=== PATIENT | male | born 1940 | race Caucasian/White ===

== ENCOUNTER 2017-01-01 14:54 | Inpatient (IN) | payer MEDICARE, BC ==
[2017-01-01 15:40] LABS: Hematocrit 40.1 % (42.0-52.0); Hemoglobin 13.5 gm/dL (13.5-18.0); Mean Cell Volume 85.1 fl (78-100); Mean Corpuscular Hemoglobin 28.7 pg (27-31); Mean Corpuscular Hgb Conc 33.7 g/dl (32-36); Mean Platelet Volume 11.3 fl (6.0-9.5); Neutrophil # 11.5 K/mm3 (1.3-6.0); Neutrophil % 83.4 % (42-75.0); Platelet Count 187 K/mm3 (150-450); Red Blood Count 4.71 M/mm3 (4.7-6.0); Red Cell Distribution Width 12.9 % (11.5-14.0); White Blood Count 13.8 K/mm3 (4.0-10.5)
[2017-01-01 15:55] LABS: Albumin * 3.7 gm/dl (3.4-5.0); Anion Gap 14.7 mmol/L (6.8-13.8); BUN/Creatinine Ratio 13.7 (9.0-21.6); Bilirubin, Total 0.5 mg/dL (0.0-1.1); Ca. Corrected For Albumin 8.7 mg/dL (8.4-10.2); Calcium * 8.8 mg/dL (7.9-10.9); Carbon Dioxide 25.5 mmol/L (24-32.6); Potassium 4.2 mmol/L (3.4-4.6); Total Protein 7.3 gm/dL (6.2-8.2)
[2017-01-01 16:01] LABS: Urine Bilirubin Negative (NEGATIVE); Urine Blood 50 /ul (NEGATIVE); Urine Ketone Negative (NEGATIVE); Urine Nitrite Negative (NEGATIVE); Urine Protein Negative (NEGATIVE); Urine Specific Gravity 1.025 SP.GR. (1.005-1.030); Urine Urobilinogen Normal (NORMAL)
--- NOTE | 2017-01-01 16:08 | ERNOTE ---
Abdominal HPI - Narrative Date of Service: 01/01/17 - General Chief Complaint: Abdominal Pain Time Seen by Provider: 01/01/17 15:09 Source: patient Exam Limitations: no limitations - Immun/Allergies/Home Medications Immunizatons: IMMUNIZATION HX Immunizations Up to Date Yes History of Influenza Vaccine Yes Hx Pneumococcal Vaccination No Allergies/Adverse Reactions: Allergies No Known Allergies Allergy (Verified 01/01/17 16:06) Home Medications: HOME MEDICATIONS Albuterol Sulfate [Proair Hfa] 2 puff IH Q4H PRN 12/04/15 [Last Taken Unknown] Blood Sugar Diagnostic [Accu-Chek Lisa] 1 each MC DAILY 12/04/15 [Last Taken Unknown] Enalapril Maleate [Vasotec] 10 mg PO DAILY 12/04/15 [Last Taken Unknown] Finasteride [Proscar] 5 mg PO Q2D 12/04/15 [Last Taken Unknown] Glipizide [Glucotrol] 20 mg PO BID 12/04/15 [Last Taken Unknown] Hydrochlorothiazide [Hydrodiuril] 25 mg PO DAILY 12/04/15 [Last Taken Unknown] Metoprolol Tartrate [Lopressor] 75 mg PO BID 12/04/15 [Last Taken Unknown] Simvastatin [Zocor] 20 mg PO HS 12/04/15 [Last Taken Unknown] Terazosin HCl 10 mg PO HS 12/04/15 [Last Taken Unknown] metFORMIN HCL [Glucophage] 850 mg PO BID 01/01/17 [Last Taken Unknown] - History of Present Illness Narrative: 76-year-old male presented to the emergency room today with left lower abdominal pain that is radiating to left flank. States that he had pain yesterday and it did disappear but it has come back today he rates the pain between a 5 and an 8. Timing: getting worse, intermittent Quality: severe, sharpness Activities at Onset: none Prior Abdominal Problems: Present: none Review of Systems - Review of Systems Constitutional: Present: no symptoms reported, See HPI. Absent: weakness, fatigue, weight loss, decreased activity level EYE: Present: no symptoms reported ENT: Present: no symptoms reported Respiratory: Present: no symptoms reported Cardiology: Present: no symptoms reported Gastrointestinal/Abdominal: Present: See HPI, abdominal pain, eating less. Absent: nausea, vomiting, diarrhea, constipation Genitourinary: Present: no symptoms reported Musculoskeletal: Present: no symptoms reported Skin: Present: no symptoms reported Neurological: Present: no symptoms reported Endocrine: Present: no symptoms reported Hematologic/Lymphatic: Present: no symptoms reported Psych: Present: no symptoms reported - Patient's Past Medical History Patient History - Medical: Arthritis, Diabetes Type 2 Patient History - Cardiac/Respiratory: Hypertension, Hyperlipidemia Patient History - Cancer: No Hx of Cancer Patient History - Surgical Procedures: Back Surgery, Cataracts, Colonoscopy, Total Hip Replacement, T & A, Other, Hernia Repair Patient History - Other: None - Family History Mother Family History - Medical: , History Unknown Family History - Cardiac/Respiratory: History Unknown Family History - Cancer: Leukemia Father Family History - Medical: , Diabetes Type 2 Family History - Cardiac/Respiratory: No pertinent hx Family History - Cancer: No pertinent family hx Sister Family History - Medical: Family History - Cancer: Pancreatic - Social History Living Situations: alone Abuse History: No History of abuse Psych History: No pertinent hx Smoking Status: Never smoker Have you smoked in the past 12 months: No Do you dip or chew tobacco: No Alcohol Use: rarely Drug Use: none - Immunizations Immunizations Up to Date: Yes Hx Pneumococcal Vaccination: No History of Influenza Vaccine: Yes Physical Exam - Physical Exam Narrative: A 6-year-old male presented to the emergency room patient has a protuberant stomach. he has left CVA tenderness and left lower quadrant discomfort upon palpation, right side abd palpation is negative for pain or discomfort right CVA tenderness is negative. States he had 2 bowel movements yesterday the first one was hard, the second one was soft., Patient states he tried to eat this morning was unable to does feel hungry. General Appearance: Present: wd/wn. Absent: moderate distress Eye Exam: Normal inspection: bilateral Ears, Nose, Throat: Present: normal ENT inspection Neck: Present: normal inspection Respiratory: Present: no respiratory distress Cardiovascular/Chest: Present: regular rate, rhythm Gastrointestinal/Abdominal: Present: normal bowel sounds, soft, other - large round belly. Absent: nontender, McBurney sign, Obturator sign, Lui sign Back Exam: Present: CVA tenderness (L). Absent: CVA tenderness (R) Extremity Exam: Present: normal inspection Neurological Exam: Present: alert, oriented, normal mood/affect Skin Exam: Present: normal color Lymphatic Exam: Present: no adenopathy ED Progress - Results and Orders Patient's Lab Results:: I have reviewed the patient's lab results. Results and Orders: elevated pancreatic enzymes - Vital Signs Patient's Vital Signs:: I have reviewed the patient's vital signs. Vital Signs: Vital Signs 01/01/17 15:09 Temperature 37.2 C Pulse Rate 79 Respiratory 18 Rate Blood Pressure 143/75 O2 Sat by Pulse 95 Oximetry - X-Ray X-Ray #1 X-Ray: abdomen Interpretation: Reviewed by me X-ray Comments: Findings: No free air. Nonobstructed nonspecific bowel gas pattern. No abnormal calcifications. There are extensive degenerative and postsurgical changes within the osseous structures. IMPRESSION: 1. No acute plain film pathology. Electronically signed by Leonel Daigle M.D.. - Progress/Reassessment Chief Complaint: Abdominal Pain Progress:: Unchanged Departure - Departure Clinical Impression: Pancreatitis Qualifiers: Chronicity: acute Pancreatitis type: unspecified pancreatitis type Acute pancreatitis complication: unspecified Qualified Code(s): K85.90 - Acute pancreatitis without necrosis or infection, unspecified Disposition: [facility] Condition: Stable Referrals: Maria Isabel López MD [Primary Care Provider] -
[2017-01-01 16:10] LABS: Urine Appearance Clear; Urine Bacteria 1+; Urine Color Yellow; Urine RBC 0-5 /hpf (0-5); Urine WBC 0-5 /hpf (0-5)
[2017-01-01] MEDS ORDERED: NORMAL SALINE 1,000 ML IV ONE (17:02)
[2017-01-01] MEDS ORDERED: HYDROmorphone HCL 1 MG/ML DISP.SYRIN IV ONE (17:07)
[2017-01-01] MEDS ORDERED: HYDROmorphone HCL 1 MG/ML DISP.SYRIN ONE (17:23)
[2017-01-01] MEDS ORDERED: ONDANSETRON HCL/PF 2 MG/ML VIAL IV ONE (17:32)
[2017-01-01] MEDS ORDERED: ONDANSETRON HCL/PF 2 MG/ML VIAL ONE (17:32)
[2017-01-01] MEDS ORDERED: ONDANSETRON HCL/PF 2 MG/ML VIAL IV PRN (20:20)
[2017-01-01] MEDS: HEPARIN SODIUM,PORCINE 5,000 UNITS/ML VIAL SC SCH (20:47)
[2017-01-01] MEDS: HYDROmorphone HCL 1 MG/ML DISP.SYRIN IV PRN (20:47)
[2017-01-01] MEDS: RINGERS SOLUTION,LACTATED 1,000 ML IV PRN (20:47)
[2017-01-01] MEDS ORDERED: ALBUTEROL SULFATE 200 PUFF INHALER IH PRN (21:00)
[2017-01-01] MEDS ORDERED: INSULIN GLARGINE,HUM.REC.ANLOG 100 UNITS/ML VIAL SC SCH (21:00)
[2017-01-01] MEDS ORDERED: FINASTERIDE 5 MG TABLET PO SCH (21:00)
[2017-01-01] MEDS ORDERED: METOPROLOL TARTRATE 50 MG TABLET PO SCH (21:00)
--- NOTE | 2017-01-01 21:05 | HP ---
Chief Complaint - Chief Complaint Date of Service: 01/01/17 Time of Service: 21:03 Chief Complaint: "Abdominal Pain". Source of HPI- Pt; reliable, ER provider report. History of Present Illness: Mr. Williamson is a 76-yr-old WM pt of Dr. Maria Isabel López with a PMH of: BPH, DM , HTN & HLD. Pt states that last night at about 10.00 pm, he developed lower abdominal pain, but the pain did not persist and was able to sleep well the rest of the night. He states that an hour after he woke up this am, he had the same pain on his lower abdomen. The pain was dull in nature but he chose to put up with it until in the afternoon hours, when it got more severe, and it started radiating to the LT flank area. He called his PCP' office about his symptoms and he was advised to go to the ED. He reports feeling nauseated once while at the ED. He denies being started on any new medications recently. However, he does admit to alcohol consumption of 3-4 cans of beer weekly. He reports that he had 3 cans of beer last night. He denies fever and chills. During evaluation at the ED, lab work -up showed he had Amylase/lipase levels of 255/2984 with a slightly elevated WBC of 13,800. The abdominal X-ray did not have any acute findings. - Patient's Past Medical History Patient History - Medical: Arthritis, Diabetes Type 2, Other - BPH. Patient History - Cardiac/Respiratory: Hypertension, Hyperlipidemia Patient History - Cancer: No Hx of Cancer Patient History - Surgical Procedures: Back Surgery, Cataracts, Colonoscopy, Total Hip Replacement, T & A, Other, Hernia Repair Patient History - Other: None - Family History Mother Family History - Medical: , History Unknown Family History - Cardiac/Respiratory: History Unknown Family History - Cancer: Leukemia Father Family History - Medical: , Diabetes Type 2 Family History - Cardiac/Respiratory: No pertinent hx Family History - Cancer: No pertinent family hx Sister Family History - Medical: Family History - Cancer: Pancreatic - Social History Living Situations: home Abuse History: No History of abuse Psych History: No pertinent hx Smoking Status: Never smoker Have you smoked in the past 12 months: No Do you dip or chew tobacco: No Patient requests Smoking Cessation Consult: No Initiate information on Smoking Cessation: No Alcohol Use: rarely Drug Use: none - Immunizations Immunizations Up to Date: Yes Hx Pneumococcal Vaccination: No History of Influenza Vaccine: Yes Review Of Systems (GEN) - Review of Systems Generalized/Overall Review: Absent: Weakness, Chills, Fever EENTM: Absent: Eye Pain, Nose Congestion, Throat Pain, Throat Swelling Respiratory: Absent: Cough, Shortness of Breath Cardiac: Absent: Chest Pain, Edema, Palpitations Abdominal: Present: Abdominal Pain, Constipation, Diarrhea. Absent: Nausea, Vomiting Genitourinary: Absent: Itching, Urgency, Frequency Musculoskeletal: Absent: Joint Pain, Back Pain Neurological: Absent: Headache, Anxiety, Depressed, Tremors Skin: Absent: Dryness, Lesions, Lumps Endocrine: Absent: Intolerance to Cold, Intolerance to Heat, Increased Thirst Immunizations: IMMUNIZATION HX Immunizations Up to Date Yes History of Influenza Vaccine Yes Hx Pneumococcal Vaccination No Allergies/Adverse Reactions: Allergies Allergy/AdvReac Type Severity Reaction Status Date / Time No Known Allergies Allergy Verified 01/01/17 17:49 Home Medications: HOME MEDICATIONS Albuterol Sulfate [Proair Hfa] 2 puff IH Q4H PRN 12/04/15 [Last Taken Unknown] Blood Sugar Diagnostic [Accu-Chek Lisa] 1 each MC DAILY 12/04/15 [Last Taken Unknown] Enalapril Maleate [Vasotec] 10 mg PO DAILY 12/04/15 [Last Taken Unknown] Finasteride [Proscar] 5 mg PO Q2D 12/04/15 [Last Taken 12/31/16 21:00] Hydrochlorothiazide [Hydrodiuril] 25 mg PO DAILY 12/04/15 [Last Taken Unknown] Metoprolol Tartrate [Lopressor] 75 mg PO BID 12/04/15 [Last Taken Unknown] Simvastatin [Zocor] 20 mg PO HS 12/04/15 [Last Taken Unknown] Terazosin HCl 10 mg PO HS 12/04/15 [Last Taken Unknown] Calcium Polycarbophil [Fibercon] 1,250 mg PO BID 01/01/17 [Last Taken Unknown] glyBURIDE [Micronase] 10 mg PO BID 01/01/17 [Last Taken Unknown] metFORMIN HCL [Glucophage] 850 mg PO BID 01/01/17 [Last Taken Unknown] Exam - Exam Vital Signs: Vital Signs - Last Taken Temp 36.7 C 01/01/17 18:02 Pulse 74 01/01/17 18:02 Resp 18 01/01/17 18:02 BP 147/78 01/01/17 18:02 Pulse Ox 94 01/01/17 18:02 Constitutional: Present: Alert, Oriented x3, Cooperative, No distress ENT Exam: Present: normal ENT inspection, hearing grossly normal, TMs normal Eye Exam: bilateral eye: normal inspection, PERRL Neck: Present: non-tender, full range of motion, supple Back Exam: Present: normal inspection, no CVA tenderness Breasts: Present: Exam deferred Respiratory: Present: lungs clear, no accessory muscle use, No wheezing Cardiovascular/Chest: Present: normal peripheral pulses, regular rate, rhythm, no chest tenderness, no edema, no murmur Abdomen: Present: nontender, no rebound tenderness, distended /Rectal: Present: Exam deferred Extremity: Present: normal range of motion, non-tender, normal inspection, no pedal edema, no calf tenderness Skin Exam: Present: warm/dry, no cyanosis Lymphatic: Present: no adenopathy Neurologic: Present: no motor/sensory deficits, alert, oriented x 3 Appearance: Present: appropriate appearance, appropriate insight Eye contact: Present: cooperative, good eye contact, normal speech Thoughts: Present: normal thought pattern, no apparent hallucination Diagnostic Studies: Laboratory Results WBC 13.8 K/mm3 (4.0-10.5) H 01/01/17 15:41 RBC 4.71 M/mm3 (4.7-6.0) 01/01/17 15:41 Hgb 13.5 gm/dL (13.5-18.0) 01/01/17 15:41 Hct 40.1 % (42.0-52.0) L 01/01/17 15:41 MCV 85.1 fl (78-100) 01/01/17 15:41 MCH 28.7 pg (27-31) 01/01/17 15:41 MCHC 33.7 g/dl (32-36) 01/01/17 15:41 RDW 12.9 % (11.5-14.0) 01/01/17 15:41 Plt Count 187 K/mm3 (150-450) 01/01/17 15:41 MPV 11.3 fl (6.0-9.5) H 01/01/17 15:41 Immature Gran % (Auto) 0.40 % (0.001-0.429) 01/01/17 15:41 Immature Gran # (Auto) 0.05 K/mm3 (0.000-0.0310) H 01/01/17 15:41 Neutrophils % 83.4 % (42-75.0) H 01/01/17 15:41 Lymphocytes % 7.1 % (20-51) L 01/01/17 15:41 Monocytes % 7.5 % (0.0-9) 01/01/17 15:41 Eosinophils % 1.2 % (0.0-3.0) 01/01/17 15:41 Basophils % 0.4 % (0.0-1.0) 01/01/17 15:41 Nucleated RBC % 0.0 k/mm3 (0-1) 01/01/17 15:41 Neutrophils # 11.5 K/mm3 (1.3-6.0) H 01/01/17 15:41 Lymphocytes # 1.0 k/mm3 (1.5-3.5) L 01/01/17 15:41 Monocytes # 1.0 k/mm3 (0.0-1.0) 01/01/17 15:41 Eosinophils # 0.2 k/mm3 (0.0-0.7) 01/01/17 15:41 Absolute Basophils 0.1 k/mm3 (0.0-0.1) 01/01/17 15:41 Sodium 139 mmol/L (132-142) 01/01/17 15:41 Plasma Sodium 141 mmol/L (130-142) 01/01/17 15:41 Potassium 4.2 mmol/L (3.4-4.6) 01/01/17 15:41 Chloride 103 mmol/L (97-106) 01/01/17 15:41 Carbon Dioxide 25.5 mmol/L (24-32.6) 01/01/17 15:41 Anion Gap 14.7 mmol/L (6.8-13.8) H 01/01/17 15:41 BUN 17 mg/dL (6-23) 01/01/17 15:41 Creatinine 1.24 mg/dL (0.4-1.4) 01/01/17 15:41 Est GFR (Non-Af Amer) 60 mL/min (60-130) 01/01/17 15:41 BUN/Creatinine Ratio 13.7 (9.0-21.6) 01/01/17 15:41 Random Glucose 235 mg/dL (70-110) H 01/01/17 15:41 Calcium 8.8 mg/dL (7.9-10.9) 01/01/17 15:41 Calcium Adj for Albumin 8.7 mg/dL (8.4-10.2) 01/01/17 15:41 Total Bilirubin 0.5 mg/dL (0.0-1.1) 01/01/17 15:41 AST 8 U/L (0-48) 01/01/17 15:41 ALT 22 U/L (19-67) 01/01/17 15:41 Alkaline Phosphatase 66 U/L (50-170) 01/01/17 15:41 Total Protein 7.3 gm/dL (6.2-8.2) 01/01/17 15:41 Albumin 3.7 gm/dl (3.4-5.0) 01/01/17 15:41 Triglycerides 155 mg/dL (30-200) 01/01/17 15:41 Amylase 255 U/L (25-115) H 01/01/17 15:41 Lipase 2984 U/L (73-393) H 01/01/17 15:41 Urine Color Yellow 01/01/17 15:47 Urine Appearance Clear 01/01/17 15:47 Urine pH 5.0 pH (5.0-7.0) 01/01/17 15:47 Ur Specific [place] 1.025 SP.GR. (1.005-1.030) 01/01/17 15:47 Urine Protein Negative mg/dL (NEGATIVE) 01/01/17 15:47 Urine Glucose (UA) Negative mg/dL (NEGATIVE) 01/01/17 15:47 Urine Ketones Negative mg/dL (NEGATIVE) 01/01/17 15:47 Urine Blood 50 /ul (NEGATIVE) H 01/01/17 15:47 Urine Nitrate Negative (NEGATIVE) 01/01/17 15:47 Urine Bilirubin Negative mg/dl (NEGATIVE) 01/01/17 15:47 Urine Urobilinogen Normal EU/dl (NORMAL) 01/01/17 15:47 Ur Leukocyte Esterase 25 /ul (NEGATIVE) H 01/01/17 15:47 Urine RBC 0-5 /hpf (0-5) 01/01/17 15:47 Urine WBC 0-5 /hpf (0-5) 01/01/17 15:47 Ur Epithelial Cells None seen /hpf (0-5) 01/01/17 15:47 Urine Bacteria 1+ (NONE) H 01/01/17 15:47 Urine Culture Comments Culture to follow 01/01/17 15:47 Assessment/Plan - Assessment/Plan (1) Acute pancreatitis Assessment: Mr. Williamson presented with Abd. Pain that was radiating to the LT flank area. He reported feeling nauseated once, but denied fevers and chills. He was determined to have Acute Pancreatitis due to the elevated Amylase/lipase levels of 255/2984. He has had no new recent medication changes involving steroids, opioids that could cause increase in pancreatic enzymes. His Tryglycerides was in the normal range. He has had no outside the country travel. At the time of physical examination, he is not ill -appearing and has mild abdominal tenderness without guarding. Social history reveals he has alcohol consumption and therefore I suspect this to be the trigger of the pancreatitis episode. Could consider obtaining an US of the Abdomen to see also if this is Non- Gallstone or Gallstone pancreatitis. Given his clinical presentation and a score of 2 on Tayla's Criteria, he appears to have a milder episode. Will treat with aggressive IVF hydration with Isotonic Crystaloid solution such as LR and 250-500ml/hr & it is strongly recommended for 12-24 hrs to prevent necrotizing pancreatitis. Will start at 250ml/hr. Will rest Gut by keeping him NPO and then advance diet as tolerated, utilize prn Analgesiscs & Antiemetics. Trend Amylase/lipase levels in am labs. Estimated LOS is 3-5 days. Problem: Acute (2) Diabetes mellitus Assessment: Will hold his Oral Glycemic medications and start Low dose SSI and Long acting insulin for better control of blood sugars during hospitalization and during infection process. Perfom Accu- checks q 6 hrs. Problem: Chronic (3) HTN (hypertension) Assessment: Stable- Continue HCTZ, Enapril, Metoprolol. Problem: Chronic Qualifiers: Hypertension type: essential hypertension Qualified Code(s): I10 - Essential (primary) hypertension (4) BPH (benign prostatic hyperplasia) Assessment: Stable- On Proscar & Hytrin. Problem: Chronic
[2017-01-01] MEDS ORDERED: METOPROLOL TARTRATE 25 MG TABLET ONE (21:39)
[2017-01-01] MEDS: CALCIUM POLYCARBOPHIL 625 MG TABLET PO SCH (21:42)
[2017-01-01] MEDS: TERAZOSIN HCL 5 MG CAPSULE PO SCH (21:45)
[2017-01-01] MEDS: SIMVASTATIN 20 MG TABLET PO SCH (21:45)
[2017-01-02] MEDS: INSULIN LISPRO 100 UNITS/ML VIAL SC SCH ×5 (00:48→20:09)
[2017-01-02] MEDS: RINGERS SOLUTION,LACTATED 1,000 ML IV PRN ×6 (00:49→23:48)
[2017-01-02] MEDS: HYDROmorphone HCL 1 MG/ML DISP.SYRIN IV PRN ×4 (04:11→23:51)
[2017-01-02 06:03] LABS: Hematocrit 34.1 % (42.0-52.0); Hemoglobin 11.5 gm/dL (13.5-18.0); Mean Corpuscular Hemoglobin 29.3 pg (27-31); Mean Corpuscular Hgb Conc 33.7 g/dl (32-36); Mean Platelet Volume 11.9 fl (6.0-9.5); Neutrophil # 6.6 K/mm3 (1.3-6.0); Neutrophil % 74.2 % (42-75.0); Platelet Count 159 K/mm3 (150-450); Red Blood Count 3.92 M/mm3 (4.7-6.0); White Blood Count 8.9 K/mm3 (4.0-10.5)
[2017-01-02 06:21] LABS: Albumin * 2.9 gm/dl (3.4-5.0); Anion Gap 10.9 mmol/L (6.8-13.8); BUN/Creatinine Ratio 17.7 (9.0-21.6); Bilirubin, Total 0.6 mg/dL (0.0-1.1); Ca. Corrected For Albumin 8.9 mg/dL (8.4-10.2); Calcium * 8.3 mg/dL (7.9-10.9); Carbon Dioxide 27.8 mmol/L (24-32.6); Potassium 3.7 mmol/L (3.4-4.6); Total Protein 6.2 gm/dL (6.2-8.2)
--- NOTE | 2017-01-02 06:44 | PN ---
Subjective - Date and Time Seen Date: 01/02/17 - n Time: 06:40 Subjective Narrative: Mr. Williamson is alert and in no distress this am. Denies nausea. Has mild abp pain but the pain medication helps. No other acute events overnight. Objective - Vitals Vitals: Last Vital Signs Temp 36.5 C 01/02/17 04:29 Pulse 70 01/02/17 04:29 Resp 20 01/02/17 04:29 BP 129/65 01/02/17 04:29 Pulse Ox 92 01/02/17 04:29 - Abnormal Lab Findings Abnormal Lab Findings: Abnormal Lab Results 01/02/17 01/02/17 Range/Units 05:11 05:11 RBC 3.92 L (4.7-6.0) M/mm3 Hgb 11.5 L (13.5-18.0) gm/dL Hct 34.1 L (42.0-52.0) % MPV 11.9 H (6.0-9.5) fl Lymphocytes % 15.2 L (20-51) % Neutrophils # 6.6 H (1.3-6.0) K/mm3 Lymphocytes # 1.4 L (1.5-3.5) k/mm3 Random Glucose 141 H D (70-110) mg/dL ALT 15 L (19-67) U/L Albumin 2.9 L (3.4-5.0) gm/dl - Exam Constitutional: Present: Alert, Oriented x3, Cooperative, No distress ENT Exam: Present: normal ENT inspection, hearing grossly normal. Absent: nasal congestion, nasal drainage Neck: Present: full range of motion, supple, normal inspection Breasts: Present: Exam deferred Respiratory: Present: lungs clear, no accessory muscle use, No wheezing Cardiovascular/Chest: Present: normal peripheral pulses, regular rate, rhythm, no chest tenderness, no edema, no murmur Abdomen: Present: nontender, distended /Rectal: Present: Exam deferred Extremity: Present: normal range of motion, non-tender, normal inspection, no calf tenderness Skin Exam: Present: warm/dry, no cyanosis Lymphatic: Present: no adenopathy Neurologic: Present: no motor/sensory deficits, alert, oriented x 3. Absent: dizzy/light-headedness Appearance: Present: appropriate appearance, appropriate insight Eye contact: Present: cooperative, good eye contact, normal speech Thoughts: Present: normal thought pattern, no apparent hallucination Assessment/Plan - Problems/Diagnosis (1) Acute pancreatitis Problem: Acute Narrative: Mr. Williamson presented with Abd. Pain that was radiating to the LT flank area. He reported feeling nauseated once, but denied fevers and chills. He was determined to have Acute Pancreatitis due to the elevated Amylase/lipase levels of 255/2984. He has had no new recent medication changes involving steroids, opioids that could cause increase in pancreatic enzymes. His Tryglycerides was in the normal range. He has had no outside the country travel. At the time of physical examination, he is not ill -appearing and has mild abdominal tenderness without guarding. Social history reveals he has alcohol consumption and therefore I suspect this to be the trigger of the pancreatitis episode. Could consider obtaining an US of the Abdomen to see also if this is Non- Gallstone or Gallstone pancreatitis. Given his clinical presentation and a score of 2 on Tayla's Criteria, he appears to have a milder episode. Will treat with aggressive IVF hydration with Isotonic Crystaloid solution such as LR and 250-500ml/hr & it is strongly recommended for 12-24 hrs to prevent necrotizing pancreatitis. Will start at 250ml/hr. Will rest Gut by keeping him NPO and then advance diet as tolerated, utilize prn Analgesiscs & Antiemetics. Trend Amylase/lipase levels in am labs. Estimated LOS is 3-5 days. (2) Diabetes mellitus Problem: Chronic Narrative: Will hold his Oral Glycemic medications and start Low dose SSI and Long acting insulin for better control of blood sugars during hospitalization and during infection process. Perfom Accu- checks q 6 hrs. 01/02/17- Will stop the Lantus. Change Accu-checks to q 4 hrs, May add D5 to IVF if blood sugars start dropping to < 80. (3) HTN (hypertension) Problem: Chronic Qualifiers: Hypertension type: essential hypertension Qualified Code(s): I10 - Essential (primary) hypertension Narrative: Stable- Continue HCTZ, Enapril, Metoprolol. (4) BPH (benign prostatic hyperplasia) Problem: Chronic Narrative: Stable- On Proscar & Hytrin.
[2017-01-02] MEDS ORDERED: ALBUTEROL SULFATE 2.5 MG/0.5 ML VIAL.NEB IH PRN (07:02)
[2017-01-02 07:26] LABS: Amylase * 349 U/L (25-115)
[2017-01-02 08:01] LABS: Lipase 3590 U/L (73-393)
[2017-01-02] MEDS: HEPARIN SODIUM,PORCINE 5,000 UNITS/ML VIAL SC SCH ×2 (09:12→20:08)
[2017-01-02] MEDS: HYDROCHLOROTHIAZIDE 25 MG TABLET PO SCH (09:54)
[2017-01-02] MEDS: METOPROLOL TARTRATE 25 MG TABLET PO SCH ×2 (09:54→20:08)
[2017-01-02] MEDS: CALCIUM POLYCARBOPHIL 625 MG TABLET PO SCH ×2 (09:54→20:08)
[2017-01-02] MEDS: ENALAPRIL MALEATE 5 MG TABLET PO SCH (09:55)
[2017-01-02] MEDS ORDERED: DIATRIZOATE MEGLU/DIATRIZO SOD 30 ML BTL PO ONE (12:33)
[2017-01-02] MEDS ORDERED: PANTOPRAZOLE SODIUM 40 MG in NORMAL SALINE 100 ML IV SCH (16:30)
--- NOTE | 2017-01-02 17:09 | CONS ---
HPI - General Narrative: 76-year-old male with known BPH developed some atypical abdominal symptomatology initially lower abdominal eventually epigastric area. Laboratory evaluation with normal creatinine, normal white count however amylase and lipase significantly abnormal. Patient has been admitted recent CT was obtained and revealed the presence of a very large left proximal ureteral calculus with impaired drainage on that side based on contrast excretion delay. Denies fevers chills, he is not a heavy drinker, currently not insignificant pain. Urinalysis with some mild abnormalities. Patient was given a dose of ceftriaxone. He is diabetic. 01/09 CT urogram: Large obstructing left proximal ureteral calculus with delayed excretion, smaller stone in the kidney. Artifact down by the bladder. Some nonspecific inflammation. Stone was not visible on KUB Location: Left kidney Duration: Days Severity/Stage: Currently mild was more moderate in severity Associated Sx's: Some nausea, no fevers chills Modifying factors: Got better on its own Quality: More of a dull ache Past medical history: BPH, diabetes, hypertension, hyperlipidemia. Past surgical history: No prior stone surgery, hip replacements, no prior urologic surgery Social history: Patient denies drinking heavily only occasional beer or not that many. Family history: Noncontributory Review of systems: General: No fevers, some epigastric discomfort favoring the left side, some nausea Lungs: No current shortness of breath Heart: [No chest pain] GI: Abdominal discomfort as above Musculoskeletal: Some aches and pains at baseline, nothing new, has bilateral hips : Patient with history of BPH I started him on BPH medication no urinary trouble currently. No gross hematuria. 14 point review of systems otherwise negative, important positives noted - History of Present Illness Allergies/Adverse Reactions: Allergies No Known Allergies Allergy (Verified 01/01/17 17:49) Home Medications: Home Medications Medication Instructions Recorded Last Taken Albuterol Sulfate [Proair Hfa] 2 puff IH Q4H PRN 12/04/15 Unknown Blood Sugar Diagnostic [Accu-Chek 1 each MC DAILY 12/04/15 Unknown Lisa] Enalapril Maleate [Vasotec] 10 mg PO DAILY 12/04/15 Unknown Finasteride [Proscar] 5 mg PO Q2D 12/04/15 12/31/16 21:00 Hydrochlorothiazide [Hydrodiuril] 25 mg PO DAILY 02/09/16 Unknown Metoprolol Tartrate [Lopressor] 75 mg PO BID 12/04/15 Unknown Simvastatin [Zocor] 20 mg PO HS 12/04/15 Unknown Terazosin HCl 10 mg PO HS 12/04/15 Unknown Calcium Polycarbophil [Fibercon] 1,250 mg PO BID 01/01/17 Unknown glyBURIDE [Micronase] 10 mg PO BID 01/01/17 Unknown metFORMIN HCL [Glucophage] 850 mg PO BID 01/01/17 Unknown - Patient's Past Medical History Patient History - Medical: Arthritis, Diabetes Type 2, Other - BPH. Patient History - Cardiac/Respiratory: Hypertension, Hyperlipidemia Patient History - Cancer: No Hx of Cancer Patient History - Surgical Procedures: Back Surgery, Cataracts, Colonoscopy, Total Hip Replacement, T & A, Other, Hernia Repair Patient History - Other: None - Family History Mother Family History - Medical: , History Unknown Family History - Cardiac/Respiratory: History Unknown Family History - Cancer: Leukemia Father Family History - Medical: , Diabetes Type 2 Family History - Cardiac/Respiratory: No pertinent hx Family History - Cancer: No pertinent family hx Sister Family History - Medical: Family History - Cancer: Pancreatic - Social History Living Situations: home Abuse History: No History of abuse Psych History: No pertinent hx Smoking Status: Never smoker Have you smoked in the past 12 months: No Do you dip or chew tobacco: No Patient requests Smoking Cessation Consult: No Initiate information on Smoking Cessation: No Alcohol Use: rarely Drug Use: none - Immunizations Immunizations Up to Date: Yes Hx Pneumococcal Vaccination: No History of Influenza Vaccine: Yes Procedures AFTER-CATAR DISCISSION (08/26/11) CATARAC PHACOEMULS/ASPIR (05/08/09) COLONOSCOPY (03/22/08) INJECT STEROID (04/14/06) INJECT/INFUSE NEC (04/14/06) INJECTION INTO JOINT (04/14/06) INSERT LENS AT CATAR EXT (05/08/09) INSPECTION OF LOWER INTESTINAL TRACT, ENDO (12/10/15) OTHER & OPEN REPAIR UMBILICAL HERNIA W GRAFT OR PROSTHESIS (07/24/11) RADICAL EXCIS SKIN LES (07/24/11) TOTAL HIP REPLACEMENT (11/11/06) X-RAY NEC AND NOS (04/14/06) Medications - Medications Current Medications: Current Medications Calcium Polycarbophil (Fibercon) 1,250 mg PO BID MINDA Stop: 01/31/17 21:01 Last Admin: 01/02/17 09:54 Dose: 1,250 mg Enalapril Maleate (Vasotec) 10 mg PO DAILY MINDA Stop: 02/01/17 09:01 Last Admin: 01/02/17 09:55 Dose: 10 mg Finasteride (Proscar) 5 mg PO Q2D MINDA Stop: 01/31/17 21:01 Last Admin: 01/01/17 21:42 Dose: Not Given Heparin Sodium (Porcine) (Heparin Sodium) 5,000 units SC Q12H [facility] Stop: 01/31/17 20:31 Last Admin: 01/02/17 09:12 Dose: 5,000 units Hydrochlorothiazide (Hydrodiuril) 25 mg PO DAILY [facility] Stop: 02/01/17 09:01 Last Admin: 01/02/17 09:54 Dose: 25 mg Hydromorphone HCl (Dilaudid) 0.5 mg IV Q1H PRN PRN Reason: Moderate Pain Stop: 01/31/17 20:22 Last Admin: 01/02/17 07:41 Dose: 0.5 mg Lactated Ringer's (Lactated Ringers) 1,000 mls @ 100 mls/hr IV .Q10H PRN PRN Reason: HYDRATION Last Admin: 01/02/17 13:15 Dose: 250 mls/hr Ceftriaxone Sodium 1,000 mg/ (Dextrose/Water) 100 mls @ 200 mls/hr IV Q24H MINDA PRN Reason: Protocol Stop: 02/01/17 15:46 Last Admin: 01/02/17 16:44 Dose: 200 mls/hr Metoprolol Tartrate (Lopressor) 75 mg PO BID [facility] Stop: 02/01/17 09:01 Last Admin: 01/02/17 09:54 Dose: 75 mg Simvastatin (Zocor) 20 mg PO HS [facility] Stop: 01/31/17 21:01 Last Admin: 01/01/17 21:45 Dose: 20 mg Terazosin HCl (Hytrin) 10 mg PO HS [facility] Stop: 01/31/17 21:31 Last Admin: 01/01/17 21:45 Dose: 10 mg Physical Examination - Exam Narrative: General: Definitely does not appear to be in severe renal colic, no acute distress, nontoxic Psych: Alert and oriented HEENT: EOM grossly intact Lungs: Respirations unlabored, clear Abdomen: Abdomen tense at baseline, no rebound, no peritoneal signs Neuro: sensation intact Extremities: Moves all 4 without difficulty Heart: Regular Skin: No obvious rashes Back: No CVA tenderness Vital Signs: Vital Signs - Last Taken Temp 98.1 F 01/02/17 14:57 Pulse 67 01/02/17 14:57 Resp 18 01/02/17 14:57 BP 125/70 01/02/17 14:57 Pulse Ox 94 01/02/17 14:57 O2 Oxygen Delivery Method Room Air - Results and Findings: Narrative: #1 obstructing large left ureteral calculus in a diabetic: Size of stone makes it extraordinarily unlikely to pass, his symptomatology is atypical and I' m not quite sure what to make of the amylase and lipase. I have had one other patient without any pancreatic issues with obstructing stone do this before but it is pretty rare. Discussed options including trial of passage which is unlikely to be successful in this situation. Stone not visible on KUB so ESWL not a great option. My recommendation is to proceed with cystoscopy and retrograde pyelograms followed by attempted left ureteroscopy with laser/basket versus simply stenting depending on intraoperative findings. Risk of surgery include bleeding/infection/injury to ureter including stricture/ avulsion/perforation. Typical stent symptoms discussed. 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 In addition if there is evidence of infection on the backside of the stone I am unlikely to proceed with ureteroscopy and would simply manipulate stone and stent as there is a higher infection/sepsis rate in that situation especially in diabetics. Patient has been nothing by mouth, he did receive a dose of ceftriaxone. He is interested in proceeding with surgery we'll proceed today. Lab/Microbiology results last 24 hrs: Abnormal/Pending Laboratory Last 24 HRS 01/02/17 01/02/17 01/02/17 05:11 05:11 05:11 RBC Hgb Hct MPV Lymphocytes % Neutrophils # Lymphocytes # Random Glucose 141 H D ALT 15 L Albumin 2.9 L LDL Cholesterol 39 L HDL Cholesterol 33 L Cholesterol/HDL Ratio 3.0 L Amylase 349 H Lipase 3590 H 01/02/17 05:11 RBC 3.92 L Hgb 11.5 L Hct 34.1 L MPV 11.9 H Lymphocytes % 15.2 L Neutrophils # 6.6 H Lymphocytes # 1.4 L Random Glucose ALT Albumin LDL Cholesterol HDL Cholesterol Cholesterol/HDL Ratio Amylase Lipase
[2017-01-02] MEDS ORDERED: RINGERS SOLUTION,LACTATED 1,000 ML IV ONE (17:36)
--- NOTE | 2017-01-02 17:48 | OR ---
Operative Report - Dictated Report Narrative: Location: Main OR Anesthesia: General Surgeon: Dr. Valdez Preoperative diagnosis: Left proximal ureteral stone(s) Postoperative diagnosis: Same with additional small bladder stones, BPH with obstruction with significant intravesical prostate and difficult ureteral anatomy secondary to bladder neck/prostate anatomy Procedure: #1 Cystoscopy with removal of foreign body (small stones) and left retrograde pyelogram #2 left stone manipulation without removal and placement of a 7 by multi length double j stent Indications: 76-year-old male known BPH developed atypical abdominal discomfort with elevated pancreatic enzymes but also discovered to have a very large obstructing left ureteral calculus. Discussed options and elected to proceed with the above-mentioned procedure Description: Consent obtained. Patient brought to the operating room where general endotracheal anesthesia was induced. Placed in the dorsal lithotomy position. Prepped and draped. Timeout taken. Rigid cystoscope introduced navigated towards the bladder with 30 lens. Does have an enlarged prostate with bilobar hypertrophy and a significant intravesical component with the ureters tucked in behind that prostate/bladder neck lip. No way to reach those ureters with 30 lens and straight wire based on anatomy. Nicholas cystoscopy with 30 and 70 lenses revealed a paucity of heavy obstructive change. There are small stones located behind the bladder neck/prostate lip. Bladder was rinsed and stent grasping forceps was used to extract the smaller stones which did fit through the sheath. I had to use the 70 lens, 5 [place] catheter and angled Glidewire to intubate left ureteric orifice with wire at which point I was able to advance the 5 [place] catheter into the ureter. Prior to injection of contrast the contrast from the CT urogram was visible with a transition point in the approximate location of the known stone seen on CT. Left retrogrades obtained and interpreted by Dr. Acuña. Left: 5-7 mL of Isovue was injected after the angled Glidewire was removed and the proximal ureter was seen to be hydronephrotic with a shadowing filling defect consistent with the known location of stone. Ureter distal to that looked fairly normal. I used the angled Glidewire to navigate past the stone and used the 5 [place] catheter to bump the stone into the renal pelvis. Prompt drainage of hydronephrotic urine without evidence of infection. Given the difficulty of the bladder neck anatomy and no prior stenting and given the size of stone I felt that was in the patient's best interest to simply stent, allow for passive dilation and proceed with definitive management at a later setting. The other concerning finding was the elevated pancreatic enzymes. As such I slipped and a Super Stiff wire. Remove the 5 [place] catheter. Over that wire a 7 by multi length stent was deployed. Specimen: None EBL: 0 ml Condition: tolerated procedure Important findings: Abnormal bladder neck anatomy from high riding intravesical prostate. Bladder stones post-successful removal. Successful left stone manipulation and stenting with very large renal pelvis stone. Not visible on x-ray which would make it possibly consistent with uric acid stone. Follow-up: We'll plan on definitive surgery this Thursday. Would only do so once we confirm he definitely does not have acute pancreatitis. Again I have seen elevated amylase/lipase one time with stone before no pancreatic issues but he is diabetic. If Dr. Ray/primary service not comfortable with surgery this Thursday and wants to wait a little bit longer just let me know.
[2017-01-02] MEDS: TERAZOSIN HCL 5 MG CAPSULE PO SCH (20:08)
[2017-01-02] MEDS: SIMVASTATIN 20 MG TABLET PO SCH (20:09)
[2017-01-03 06:16] LABS: Hematocrit 33.7 % (42.0-52.0); Hemoglobin 11.1 gm/dL (13.5-18.0); Mean Cell Volume 87.5 fl (78-100); Mean Corpuscular Hemoglobin 28.8 pg (27-31); Mean Corpuscular Hgb Conc 32.9 g/dl (32-36); Mean Platelet Volume 12.2 fl (6.0-9.5); Neutrophil # 6.4 K/mm3 (1.3-6.0); Neutrophil % 78.1 % (42-75.0); Platelet Count 148 K/mm3 (150-450); Red Blood Count 3.85 M/mm3 (4.7-6.0); Red Cell Distribution Width 13.2 % (11.5-14.0); White Blood Count 8.2 K/mm3 (4.0-10.5)
[2017-01-03] MEDS: INSULIN LISPRO 100 UNITS/ML VIAL SC SCH (06:22)
[2017-01-03 06:30] LABS: Albumin * 2.9 gm/dl (3.4-5.0); Anion Gap 10.3 mmol/L (6.8-13.8); Bilirubin, Total 0.5 mg/dL (0.0-1.1); CRP 3.5 mg/dL (0.0-0.9); Ca. Corrected For Albumin 8.9 mg/dL (8.4-10.2); Calcium * 8.3 mg/dL (7.9-10.9); Carbon Dioxide 28.6 mmol/L (24-32.6); Potassium 3.9 mmol/L (3.4-4.6); Total Protein 6.2 gm/dL (6.2-8.2)
--- NOTE | 2017-01-03 08:52 | DS ---
(1) Elevated pancreatic enzyme Problem: Acute (2) Hydronephrosis of left kidney Problem: Acute (3) Calculus of left kidney Problem: Acute (4) UTI (urinary tract infection) Problem: Suspected Qualifiers: Urinary tract infection type: acute cystitis Hematuria presence: with hematuria Qualified Code(s): N30.01 - Acute cystitis with hematuria (5) BPH (benign prostatic hyperplasia) Problem: Chronic Qualifiers: Prostatic enlargement morphology: unspecified morphology Lower urinary tract symptom presence: presence of symptoms unspecified Qualified Code(s): N40.0 - Benign prostatic hyperplasia without lower urinary tract symptoms (6) Diabetes mellitus Problem: Chronic Qualifiers: Diabetes mellitus type: type 2 Diabetes mellitus complication status: with unspecified complications Diabetes mellitus group home insulin use: without group home use Qualified Code(s): E11.8 - Type 2 diabetes mellitus with unspecified complications (7) HTN (hypertension) Problem: Chronic Qualifiers: Hypertension type: essential hypertension Qualified Code(s): I10 - Essential (primary) hypertension Description of Stay: Kirk Williamson is a 76 year old male who presented to the ER on 01/01/17 with c/o lower abdominal pain for 24 hours. patient was diagnosed with acute pancreatitis with amylase/lipase levels of 255/2984. pt was started on iv fluids and made NPO. the next day, the patient had an abdominal ultrasound done which showed left hydronephrosis. CT of the abdomen was immediately ordered and showed a 1.7 cm left kidney stone with severe hydronephrosis. immediately upon receiving these results, Dr. Acuña with urology was consulted. This afternoon the patient was taken to surgery for a cystoscopy with removal of foreign body (small stones) and left stone manipulation and placement of stent. Post op, patient recovered well. The next day his amylase/ lipase returned to normal and he was able to be discharged in stable condition. patient will follow up with Dr. Acuña on thursday in preop for another surgery in an attempt to go back and remove the stone. Patient was educated prior to discharge not to start his metformin for 48 hours due to the contrast used during the surgery. Procedures Performed: see notes below List Procedures: 01/02/[address] Acuña 1. cystoscopy with removal of foreign body (small stones) and left retrograde pyelogram 2. left stone manipulation without removal and placement of a 7 by multi length double j stent. Discharge Disposition: Home self care Disposition: Home self-care Condition: Good Discharge Activity: Activity as tolerated Discharge Diet: Consistent carbs Referrals: Maria Isabel López MD [Primary Care Provider] - Consultation Done:: Urology Problem Oriented Discharge Instructions to Patient/Family: Hydronephrosis, Cystoscopy, Care After Additional Patient Instructions (free text): Restart Metformin in 48 Hours take percocet with food. Surgery should call on thursday or thursday with preop instructions for surgery on Thursday. Prescriptions (Any new or edited meds): Ciprofloxacin HCl [Cipro] 500 mg PO BID #20 tab Potassium Citrate [Urocit-K] 15 meq PO BID #12 tablet.er oxyCODONE HCL/ACETAMINOPHEN [Percocet 5-325 mg Tablet] 1 each PO Q6H #30 tablet Complete Home Medications List: Complete Home Medication List: Albuterol Sulfate [Proair Hfa] 2 puff IH Q4H PRN 12/04/15 Blood Sugar Diagnostic [Accu-Chek Lisa] 1 each MC DAILY 12/04/15 Enalapril Maleate [Vasotec] 10 mg PO DAILY 12/04/15 Finasteride [Proscar] 5 mg PO Q2D 12/04/15 Hydrochlorothiazide [Hydrodiuril] 25 mg PO DAILY 12/04/15 Metoprolol Tartrate [Lopressor] 75 mg PO BID 12/04/15 Simvastatin [Zocor] 20 mg PO HS 12/04/15 Terazosin HCl 10 mg PO HS 12/04/15 Calcium Polycarbophil [Fibercon] 1,250 mg PO BID 01/01/17 glyBURIDE [Micronase] 10 mg PO BID 01/01/17 Ciprofloxacin HCl [Cipro] 500 mg PO BID #20 tab 01/03/17 Potassium Citrate [Urocit-K] 15 meq PO BID #12 tablet.er 01/03/17 oxyCODONE HCL/ACETAMINOPHEN [Percocet 5-325 mg Tablet] 1 each PO Q6H #30 tablet 01/03/17 Pioglitazone HCl [Actos] 15 mg PO DAILY 01/07/17
[2017-01-03] MEDS: HEPARIN SODIUM,PORCINE 5,000 UNITS/ML VIAL SC SCH (08:59)
[2017-01-03] MEDS: ENALAPRIL MALEATE 5 MG TABLET PO SCH (09:00)
[2017-01-03] MEDS: CALCIUM POLYCARBOPHIL 625 MG TABLET PO SCH (09:00)
[2017-01-03] MEDS: HYDROCHLOROTHIAZIDE 25 MG TABLET PO SCH (09:01)
[2017-01-03] MEDS: METOPROLOL TARTRATE 25 MG TABLET PO SCH (09:01)
[2017-01-03 09:15] VITALS: BP 136/58
== END 2017-01-03 11:00 | disposition home or self-care (01) | DRG 694 ==
LOC: ER 14:54 → MS 17:17
PROVIDERS: ADMIT Internal Medicine; ATTEND Internal Medicine
PROC: BT1FZZZ Fluoroscopy of Left Kidney, Ureter and Bladder (ICD-10-PCS; 2017-01-02)
PROC: 0T7 Urinary System, Dilation (ICD-10-PCS; 2017-01-02)
PROC: 0TCC8ZZ Extirpation of Matter from Bladder Neck, Via Natural or Artificial Opening Endoscopic (ICD-10-PCS; principal; 2017-01-02 16:45)
DX: N13.1 Hydronephrosis with ureteral stricture, not elsewhere classified (principal); N20.2 Calculus of kidney with calculus of ureter; N13.8 Other obstructive and reflux uropathy; N40.1 Benign prostatic hyperplasia with lower urinary tract symptoms; Q64.79 Other congenital malformations of bladder and urethra; E11.9 Type 2 diabetes mellitus without complications; I10 Essential (primary) hypertension; E78.5 Hyperlipidemia, unspecified

== ENCOUNTER 2017-01-07 11:34 | Day surgery (SDC) | payer MEDICARE, BC ==
[~2017-01-07 11:34] MED LIST: KETOROLAC TROMETHAMINE 15 MG/ML VIAL IV PRN; MORPHINE SULFATE 2 MG/ML DISP.SYRIN IV PRN; NORMAL SALINE 1,000 ML IV PRN; OXYBUTYNIN CHLORIDE 5 MG TABLET PO PRN; oxyCODONE HCL/ACETAMINOPHEN 1 TAB TABLET PO PRN
--- NOTE | 2017-01-07 14:24 | OR ---
Operative Report - Dictated Report Narrative: Location: Main OR Anesthesia: General Surgeon: Dr. Valdez Preoperative diagnosis: Left Proximal ureteral stone(s) Postoperative diagnosis: 2 separate large left renal stones Procedure: #1 Cystoscopy with removal of previously placed left 7 Amharic double-J stent #2 left flexible ureteroscopy with holmium laser lithotripsy and placement of a new 5 by multi length double j stent Indications: 76-year-old male severe left-sided flank pain with elevated pancreatic enzymes and a CT confirming very large obstructing left ureteral calculus. Underwent successful manipulation with stenting presented today for definitive management. Also made the presumptive diagnosis of uric acid nephrolithiasis based on appearance of stone on x-ray i.e. it was not visible. Description: Consent obtained. Patient brought to the operating room where general endotracheal anesthesia was induced. Placed in the dorsal lithotomy position. Prepped and draped. Timeout taken. Rigid cystoscope introduced into the bladder with ease and quick cystoscopy revealed no tumors, stones or suspicious lesions . Left stent identified grasped pulled per urethra. Super Stiff wire advanced. Ureteral access sheath was then introduced. Flexible ureteroscope was then used and advanced into the ureter. Stone was encountered in the renal pelvis, there were 2 separate stone both fairly large. 270 micron laser fiber was used. Energy of 0.4-0.6 joules and a rate of 40 hertz was used to fragment the stone into submillimeter pieces. Fragmentation was good however the amount of debris was significant and visualization became impaired as snowstorm developed. I was able to identify some of the calyces which had some larger fragments that which up off the bigger stone I hovered in fragmented further and these calyces. It became impossible to see safely any further within the kidney based on the volume of stone treated and so at that point I felt that was in the patient's best interest to stop, place a smaller stent, allow for further passage fragments/ debris especially the dust particles and also alkalize a bit further to get some dissolution of the larger fragments. As such scope and access sheath were withdrawn down the ureter leaving safety wire in place 5 by multi length double-J stent was then placed over the safety wire under fluoroscopic guidance with good curls in the kidney and bladder. Specimen was obtained and sent for analysis. Specimen: Stone dust was obtained and sent for analysis EBL: 5 ml Condition: tolerated procedure Important findings: I successfully treated both stones however fragments of some significant size did form during the fragmentation process and have collected in calyces and renal pelvis in the amount of dust debris as made visualization difficult. Follow-up: Next Thursday for likely second look left ureteroscopy with laser lithotripsy/basket extraction versus simple stent removal. I am leaning towards the former based on the above-mentioned factors but we will use patient' s input to make final decision
[2017-01-07 16:13] VITALS: BP 131/70
== END 2017-01-07 11:35 | disposition home or self-care (01) ==
LOC: AMB 11:34
PROVIDERS: ATTEND Urology
PROC: 0T778DZ Dilation of Left Ureter with Intraluminal Device, Via Natural or Artificial Opening Endoscopic (ICD-10-PCS; 2017-01-07)
PROC: 0TF48ZZ Fragmentation in Left Kidney Pelvis, Via Natural or Artificial Opening Endoscopic (ICD-10-PCS; principal; 2017-01-07 13:35)
DX: N20.0 Calculus of kidney (principal); E11.9 Type 2 diabetes mellitus without complications; I10 Essential (primary) hypertension; E78.5 Hyperlipidemia, unspecified; N40.0 Benign prostatic hyperplasia without lower urinary tract symptoms; Z68.34 Body mass index [BMI] 34.0-34.9, adult

== ENCOUNTER 2017-01-14 11:27 | Day surgery (SDC) | payer MEDICARE, BC ==
[~2017-01-14 11:27] MED LIST changes: -KETOROLAC TROMETHAMINE 15 MG/ML VIAL IV PRN; -MORPHINE SULFATE 2 MG/ML DISP.SYRIN IV PRN; -OXYBUTYNIN CHLORIDE 5 MG TABLET PO PRN; -oxyCODONE HCL/ACETAMINOPHEN 1 TAB TABLET PO PRN
--- NOTE | 2017-01-14 14:12 | OR ---
Operative Report - Dictated Report Narrative: Location: Main OR Anesthesia: General Surgeon: Dr. Valdez Preoperative diagnosis: Left renal stone(s) Postoperative diagnosis: Same Procedure: #1 Cystoscopy with removal of previously placed left double-J stent, left retrograde pyelogram #2 left flexible ureteroscopy with holmium laser lithotripsy Indications: 76-year-old male with very large left-sided renal stone post ureteroscopy with laser and stent downsizing. Has been on alkalinization with presumptive uric acid diagnosis. Original stone very large with a lot of debris and fragments. Presents for ureteroscopy and further fragmentation and consideration of stent removal depending on ureteroscopic findings. Description: Consent obtained. Patient brought to the operating room where general endotracheal anesthesia was induced. Placed in the dorsal lithotomy position. Prepped and draped. Timeout taken. Rigid cystoscope introduced into the bladder with ease and quick cystoscopy revealed no tumors, stones or suspicious lesions . Left ureter identified , stent removed after Super Stiff wire fed through stent. Wire secured Flexible ureteroscope was then used and advanced into the ureter alongside the wire. I would say patient has passed close to 70-75% of stone fragments. Calyces were inspected and there were some larger fragments located and some of the calyces. 200 laser fiber and energy of 0.4-0.6 with rate of 40 was used to further fragment. Contrast injected to outline entire collecting system and Nicholas nephroscopy re- carried out confirming no other additional larger fragments. Looking at what was in the bladder and what remained in the kidney I felt he should be okay. Scope withdrawn down the ureter and really there was not a lot of edema/ irritation and for the most part I think the ureter will accommodate the current fragments as such I did not place another stent. Specimen was obtained and sent for analysis. Specimen: Stone sent for analysis EBL: 0 ml Condition: tolerated procedure Important findings: Well treated large left renal stone with successful fragmentation of larger pieces. Follow-up: I will see him in 2-4 weeks with urinalysis prior for stone composition. Sooner if trouble
[2017-01-14 15:47] VITALS: BP 137/70
[2017-01-19 17:56] LABS: Stone Composition 2 DNR
== END 2017-01-14 11:28 | disposition home or self-care (01) ==
LOC: AMB 11:27
PROVIDERS: ATTEND Urology
PROC: BT1FZZZ Fluoroscopy of Left Kidney, Ureter and Bladder (ICD-10-PCS; 2017-01-14)
PROC: 0TP98DZ Removal of Intraluminal Device from Ureter, Via Natural or Artificial Opening Endoscopic (ICD-10-PCS; 2017-01-14)
PROC: 0TF48ZZ Fragmentation in Left Kidney Pelvis, Via Natural or Artificial Opening Endoscopic (ICD-10-PCS; principal; 2017-01-14 13:30)
DX: N20.0 Calculus of kidney (principal); E11.9 Type 2 diabetes mellitus without complications; I10 Essential (primary) hypertension; E78.5 Hyperlipidemia, unspecified; Z68.34 Body mass index [BMI] 34.0-34.9, adult